=== PATIENT | female | born 1995 | race Caucasian/White ===

== ENCOUNTER 2018-08-29 05:19 | Observation (INO) ==
--- NOTE | 2018-08-29 07:23 | Labor Progress Brief Note ---
Date of Service August 29, 2018 Subjective Patient presented with c/o Ctx Q3-5min and LOF. She has no VB, and +FM. Has been observed for two hours. No LOF has occurred here. Contractions faded. Assessment & Plan (1) Previous delivery, antepartum: Not currently laboring. Will D/C to home for f/u in office today as scheduled. Physical Exam Vital Signs (Past 24 Hours): Last Vital Signs Temp 36.9 C 08/29/18 05:29 Pulse 88 08/29/18 06:58 Resp 18 08/29/18 05:29 BP 117/78 08/29/18 06:58 Physical Exam: [place] Q6, FHT Cat 1 Cvx unchanged from last office exam at /-2 No ROM
--- NOTE | 2018-08-31 08:47 | Discharge Summary ---
Date of Service August 31, 2018 Admission HPI Per Admitting Provider Patient was seen on L&D due to contractions. She had a history of prior . She was examined, monitored for several hours and then re-examined. Though uterine contractions were occurring, they were not creating clinically obvious discomfort and not creating cervical change. For these reasons the patient was discharged to home for continuation of care, as she was not in labor.
== END 2018-08-29 07:34 | disposition home or self-care (01) ==
LOC: 4S1 05:19 → OPB 05:19 → 4S1 05:21

== ENCOUNTER 2018-08-30 02:03 | Inpatient (IN) ==
[2018-08-30] MEDS ORDERED: OXYTOCIN 30 UNITS/500 ML BAG IV PRN ×3 (02:50→13:07)
[2018-08-30] MEDS ORDERED: LACTATED RINGER'S 1,000 ML IV SCH (03:00)
[2018-08-30 03:19] LABS: Hematocrit (blood only) 34.6 % (37-47); Hemoglobin 10.9 g/dL (12.0-16.0); Mean Corpuscular Volume 77.6 fL (80-100); Platelet Count 224 K/uL (130-400); RDW Coefficient of Variation 14.4 % (11.5-14.5); RDW Standard Deviation 40.8 fL (36.4-46.3); Red Blood Count 4.46 M/uL (4.2-5.4); White Blood Count 15.99 K/uL (4.8-10.8)
[2018-08-30 03:27] LABS: Mean Corpuscular Hgb Conc 31.5 g/dL (32-36)
[2018-08-30] MEDS ORDERED: BUTORPHANOL TARTRATE 1 MG/ML VIAL IV PRN (03:31)
[2018-08-30] MEDS: BUTORPHANOL TARTRATE 1 MG/ML VIAL IV PRN ×2 (06:07→07:34)
--- NOTE | 2018-08-30 06:32 | History & Physical Report ---
Date of Service August 30, 2018 Assessment & Plan (1) Previous delivery, antepartum: heart rate tracing is category 1. The patient desires . consent form signed again. Manage expectantly. Patient declines epidural, but requesting IV pain medication. Stadol 1 mg IV every hour as needed. Manage expectantly. History of Present Illness Chief Complaint: Contractions Primary Care Provider: Xavier Johnson With complaint of contractions. Patient has been having prodromal contractions for the last 24 hours. Patient states that they have increased in intensity. Patient denies rupture of membranes. The patient is a candidate. Her first was section. Patient has opted for a VBACThe patient is a 22-year-old 2 para 1, EDC of 28 August, at 40+ weeks gestational age, who presents today. The patient has had a benign course. Her blood type is O+, antibody negative, rubella immune, hepatitis B negative, she had a negative cell free DNA screen, she had a normal 1 hour Glucola x2, and a negative third trimester beta strep culture Allergies Allergy/AdvReac Type Severity Reaction Status Date / Time cephalexin [From Keflex] Allergy Severe THROAT AND Verified 08/30/18 02:21 FACIAL SWELLING Penicillins Allergy Severe THROAT AND Verified 08/30/18 02:21 FACIAL SWELLING amoxicillin Allergy Swelling Verified 08/30/18 02:21 of Lip/Tongue/Throat azithromycin Allergy Rash Verified 08/30/18 02:21 Home Medications Home Medications Medication Instructions Recorded Confirmed Type pediatric ocirrtyr-qbnc-eoh 1 tab PO DAILY 08/16/18 08/30/18 History [Flintstones Complete (iron)] Patient History Medical History Migraine no meds Surgical History H/O wisdom tooth extraction in 10th grade History of section 09/08/2016 for [facility] Family History Grandmother (Maternal) Family history of diabetes mellitus Grandfather (Paternal) Hypertension Social History Preferred Language: Bulgarian Communication Ability: Effective 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 Beliefs That Will Affect Care: None marital status: Single Current Living Situation: Parent Current Living Situation Comment: PARENTS AND DAUGHTER-2YR OLD Other Information That Helps Us Care for You: No Feels Safe at Home: Yes Safety Concerns: Feels Safe At This Time Smoking Status: Never smoker Hx Alcohol Use: No Hx Substance Use: No Physical Exam Vital Signs (Past 24 Hours): Last Vital Signs Temp 36.6 C 08/30/18 02:15 Pulse 92 H 08/30/18 06:05 Resp 18 08/30/18 06:05 BP 116/69 08/30/18 06:05 Constitutional: WD/WN, vitals as above Respiratory: Auscultation: lungs clear to auscultation bilaterally Cardiovascular: RRR, no murmur, no edema Extremities: no calf tenderness Gastrointestinal (Abdomen): Gravid, positive heart tones, positive palpable contractions, estimated weight of 7 pounds Genitourinary: Manual OB Exam: + cervical dilation 3 cm, + cervical effacement 80% and + station -2 OB Exam Monitor Tracing: + external FHT monitor used and + category I
[2018-08-30] MEDS ORDERED: LACTATED RINGER'S 1,000 ML IV PRN ×2 (07:34→09:40)
--- NOTE | 2018-08-30 07:41 | Obstetrical Progress Note ---
Date of Service August 30, 2018 Assessment & Plan (1) Supervision of normal intrauterine in multigravida in third t rimester: - ctx's have spaced out with Stadol - AROM, will start pitocin augmentation - explained to patient Physical Exam Vital Signs (Past 24 Hours): Last Vital Signs Temp 36.9 C 08/30/18 07:21 Pulse 88 08/30/18 07:21 Resp 20 08/30/18 07:21 BP 107/61 08/30/18 07:21 Genitourinary: Manual OB Exam: + cervical dilation 4 cm, + cervical effacement 100%, + station -1 and + amniotic fluid (AROM, clear) OB Exam Monitor Tracing: + category II
[2018-08-30] MEDS: LACTATED RINGER'S 1,000 ML IV PRN ×2 (09:10→09:24)
[2018-08-30] MEDS ORDERED: fentaNYL citrate 100 MCG/2 ML VIAL ONE (09:13)
[2018-08-30] MEDS ORDERED: ePHEDrine sulfate 50 MG/ML AMP ONE (09:13)
[2018-08-30] MEDS ORDERED: BUPIVACAINE 0.25% 30 ML VIAL ONE (09:13)
[2018-08-30] MEDS ORDERED: fentaNYL 2MCG/ML ROPIV 1.25MG/ML 100 ML BAG EPI ONE (09:14)
[2018-08-30] MEDS ORDERED: ONDANSETRON INJ 2 MG/ML 2 ML VIAL IV PRN (09:40)
[2018-08-30] MEDS ORDERED: NALBUPHINE HCL INJ 10 MG/ML AMP IV PRN (09:40)
[2018-08-30] MEDS ORDERED: ePHEDrine sulfate 50 MG/ML AMP IV PRN (09:40)
[2018-08-30] MEDS ORDERED: NALOXONE HCL 0.4 MG/1 ML VIAL/CARP IV PRN (09:40)
[2018-08-30] MEDS ORDERED: DiphenhydrAMINE HCL 50 MG/ML VIAL IV PRN (09:40)
[2018-08-30] MEDS ORDERED: PROMETHAZINE HCL 6.25 MG in SODIUM CHLORIDE 0.9% 50 ML IV PRN (09:40)
[2018-08-30] MEDS ORDERED: NALOXONE HCL 1 MG in SODIUM CHLORIDE 0.9% 1000ML 1,000 ML IV PRN (09:40)
[2018-08-30] MEDS ORDERED: fentaNYL 2MCG/ML ROPIV 1.25MG/ML 100 ML BAG EPI PRN (09:40)
--- NOTE | 2018-08-30 09:40 | Anesthesiology Consultation ---
Date of Service August 30, 2018 @ 40.2 TOLAC Assessment & Plan (1) Encounter for pre-operative examination: Chart Review Chart Review: Patient NOT seen in Pre Admission Testing and Acceptable Risk for Labor Epidural Consults Requested none ASA ASA2 Proposed Anesthesia Anesthesia Type: Labor Epidural Risk / Benefits Reviewed With: PT / POA / Parent / Guardian, Accepts Plan and Informed Consent Obtained History Height/Weight Height: 5 ft 5 in Weight: 66.678 kg Allergies Allergy/AdvReac Type Severity Reaction Status Date / Time cephalexin [From Keflex] Allergy Severe THROAT AND Verified 08/30/18 02:21 FACIAL SWELLING Penicillins Allergy Severe THROAT AND Verified 08/30/18 02:21 FACIAL SWELLING amoxicillin Allergy Swelling Verified 08/30/18 02:21 of Lip/Tongue/Throat azithromycin Allergy Rash Verified 08/30/18 02:21 Medications Home Medications Medication Instructions Recorded Confirmed Last Taken pediatric dckbetlg-rlgl-jhm 1 tab PO DAILY 08/16/18 08/30/18 08/29/18 08:00 [Flmodestatontran Complete (iron)] Active Medications Generic Name Dose Route Start Last Admin Trade Name Freq PRN Reason Stop Dose Admin Butorphanol Tartrate 1 mg 08/30/18 05:53 08/30/18 07:34 Stadol IV 09/29/18 03:30 1 mg Q1HWA PRN Administration Pain Lactated Ringer's 1,000 mls @ 999 mls/hr 08/30/18 02:50 08/30/18 09:24 Lr IV 09/29/18 02:49 999 mls/hr .Q1H1M PRN Administration (Pre-Anesthesia) Lactated Ringer's 1,000 mls @ 125 mls/hr 08/30/18 03:00 08/30/18 09:10 Lr IV 09/01/18 02:59 0 mls/hr .Q8H OMERO Infusion Oxytocin 30 units in 500 mls @ 3 mls/hr 08/30/18 07:34 08/30/18 08:25 Pitocin IV 09/01/18 07:33 0.18 units/hr .Q24H PRN 3 mls/hr Labor Induction/Augmentation Titration Protocol 0.18 UNITS/HR Past Medical History Medical History Migraine no meds Past Family History Family History Grandmother (Maternal) Family history of diabetes mellitus Grandfather (Paternal) Hypertension Past Surgical History Surgical History H/O wisdom tooth extraction in 10th grade History of section 09/08/2016 for [facility] Social History Smoking Status: Never smoker Hx Alcohol Use: No Hx Substance Use: No substance use type: does not use Physical Exam Vital Signs Last Vital Signs Temp 36.9 C 08/30/18 08:43 Pulse 78 08/30/18 09:36 Resp 20 08/30/18 08:43 BP 110/58 L 08/30/18 09:36 Pulse Ox 98 08/30/18 09:33 Constitutional gravid abdomen ENMT Mouth: no TMJ abnormality Thyromental Distance: > or= 3.5 Finger Breadths Mallampati Class: II Neck normal visual inspection Respiratory normal respiratory effort Cardiovascular Rate/Rhythm: regular rate and regular rhythm Neurologic moves all extremities Psychiatric Orientation: alert Testing Laboratory Results 08/30/18 02:59 Blood Type O Positive 08/30/18 02:59 Antibody Screen POSITIVE A 08/30/18 02:59
--- NOTE | 2018-08-30 12:00 | Procedure Note ---
Vaginal Delivery Summary Date of Service August 30, 2018 Vaginal Delivery Summary Predelivery diagnoses: 22yo @ 40 2, history of for breech Postdelivery diagnoses: same Procedure: Vaginal after Surgeon: Dr Salazar EBL: 300ml Complications: none Findings: Viable male , Apgars 9/10. Weight pending, please see nursery records. Description of delivery: The patient progressed to complete with epidural anesthesia. She then began to push. She spontaneously vaginally delivered a viable male from the cephalic presentation. The head delivered in the JOSE position, followed by anterior and posterior shoulders and body. The baby was placed on mother's abdomen, the cord was doubly clamped/cut, and the baby was handed to waiting pediatrics team. During the handoff, a spontaneous cry was heard. The placenta was delivered spontaneously intact with a 3 vessel cord. The uterus/vagina were swept of clots and debris. The scar internally felt intact. The cervix/vagina/perineum were inspected and no lacerations were noted. Excellent hemostasis was observed. The sponge/instrument counts were correct x2. Mother and baby recovered in stable and good condition in the room.
[2018-08-30] MEDS ORDERED: ACETAMINOPHEN 325 MG TAB PO PRN (13:07)
[2018-08-30] MEDS ORDERED: SUPERCREAM 0.870% 15 GM JAR EXT PRN (13:07)
[2018-08-30] MEDS ORDERED: OXYCODONE/ACETAMINOPHEN 5mg/325mg TAB PO PRN (13:07)
[2018-08-30] MEDS ORDERED: DIPHTHERIA/TETANUS/PERTUSSIS 0.5 ML SYR/VIAL IM ONE (13:07)
[2018-08-30] MEDS ORDERED: HYDROCORTISONE ACETATE 25 MG SUPP PR PRN (13:07)
[2018-08-30] MEDS ORDERED: BENZOCAINE 20% AER SPR 82.5 GM CAN EXT PRN (13:07)
--- NOTE | 2018-08-30 15:11 | Anesthesia Procedure Note ---
Date of Service August 30, 2018 Anesthesia Post Epidural Note Vital Signs Vital Signs: Temp Pulse Resp BP Pulse Ox 37.5 C 106 H 18 121/77 97 08/30/18 14:10 08/30/18 14:10 08/30/18 14:10 08/30/18 14:10 08/30/18 14:10 Pain Intensity Abdomen: Pain Intensity: 0 Notes Mental Status: alert / awake / arousable Nausea / Vomiting: adequately controlled Pain: adequately controlled Airway Patency, RR, SpO2: stable & adequate BP & HR: stable & adequate Hydration State: stable & adequate Neuraxial Anesthesia: was administered and sensory block is resolving Anesthetic Complications: no major complications apparent and Pt Satisfied with anesthetic care Epidural: Removed without complications and With tip intact
[2018-08-30] MEDS: IBUPROFEN 600 MG TAB PO PRN (16:35)
[2018-08-30 17:31] VITALS: O2SAT 100
[2018-08-30] MEDS: DOCUSATE SODIUM 100 MG CAP PO SCH (20:36)
[2018-08-31] MEDS: IBUPROFEN 600 MG TAB PO PRN ×2 (00:07→08:00)
--- NOTE | 2018-08-31 06:48 | Obstetrical Progress Note ---
Date of Service <Song Jannette Mayo, - Last Filed: 08/31/18 06:48> August 31, 2018 Assessment & Plan <Song CRoel Mayo - Last Filed: 08/31/18 06:48> (1) (vaginal after ): -vital signs reviewed and WNL -last Hgb 10.9 -Blood type: O+, GBS-, Rubella Immune -pt doing well clinically -encourage ambulation, monitor and control pain with motrin tylenol, cont regular diet, monitor lochia Subjective <Songhernandez Mayo DO - Last Filed: 08/31/18 06:48> 22 y/o PPD1 found in bed this morning in NAD. Reports no acute overnight events. Pt states that she has no pain other than appropriate soreness. Tolerating PO intake without N/V. Able to ambulate without issue. She is bottle feeding without issue. No issues with voiding, no BM yet. No other acute concerns or complaints. Review of Systems All systems reviewed & are unremarkable except as noted in HPI & below Physical Exam <Song C. Mayo, DO - Last Filed: 08/31/18 06:48> Vital Signs (Past 24 Hours) Last Vital Signs Temp 36.5 C 08/31/18 04:30 Pulse 88 08/31/18 04:30 Resp 16 08/31/18 04:30 BP 101/61 08/31/18 04:30 Pulse Ox 100 08/30/18 16:35 Constitutional WD/WN, vitals as above Eyes PERRL, conjunctivae normal, anicteric sclerae ENMT external ear and nose normal, oropharynx normal Respiratory normal respiratory effort, lungs clear to auscultation Cardiovascular RRR, no murmur, no edema Gastrointestinal (Abdomen) mild abd tenderness Skin no rashes, warm and dry Psychiatric A+Ox3, euthymic affect Lymphatic no LE swelling, no calf tenderness Results & Data <Song C. Mayo, DO - Last Filed: 08/31/18 06:48> Laboratory Results Laboratory Results - last 24 hr 08/30/18 02:59 Blood Type O Positive Antibody Screen POSITIVE A Antibody Identification Anti-E Antigen Identification E Antigen - NEGATIVE Crossmatch See Detail Medications Administered Current Inpatient Medications Acetaminophen (Tylenol) 650 mg PO Q6H PRN PRN Reason: Pain/WILSON/Fever Stop: 09/29/18 13:06 Last Admin: 08/30/18 18:53 Dose: 650 mg Documented by: Benzocaine (Dermoplast Pain Relieving Lantry) 1 appln EXT PRN PRN PRN Reason: Perineal Discomfort Stop: 09/29/18 13:06 Bisacodyl (Dulcolax) 5 mg PO 2000 [facility] Stop: 08/31/18 20:01 Bisacodyl (Dulcolax) 10 mg AR DAILY PRN PRN Reason: No BM on 2nd post- day Stop: 10/01/18 05:59 Cocaine HCl (Supercream 0.870%) 1 gm EXT BID PRN PRN Reason: Hemorrhoidal Inflammation Stop: 09/13/18 13:06 Docusate Sodium (Colace) 100 mg PO BID [facility] Stop: 09/29/18 20:59 Last Admin: 08/30/18 20:36 Dose: 100 mg Documented by: Hydrocortisone (Anusol Hc) 25 mg AR BID PRN PRN Reason: Hemorrhoidal Inflammation Stop: 09/29/18 13:06 Oxytocin (Pitocin) 30 units in 500 mls @ 333.333 mls/hr IV .Q1H30M PRN; Protocol PRN Reason: BLEEDING CONTROL Stop: 09/29/18 13:06 Ibuprofen (Motrin) 600 mg PO Q4H PRN PRN Reason: Pain/WILSON/Cramping/Fever Stop: 09/29/18 13:06 Last Admin: 08/31/18 00:07 Dose: 600 mg Documented by: Multivitamins/Folic Acid/Vitamin C (Flintstones Complete Chew Tab) 1 tab PO DAILY [facility] Stop: 09/30/18 08:59 Oxycodone/Acetaminophen (Percocet 5mg/325mg) 1 tab PO Q4H PRN PRN Reason: Pain not relieved by... Stop: 09/13/18 13:06 <Ailyn Salazar, - Last Filed: 08/31/18 08:38> Co-Signing Physician Notes I have seen/examined patient. I have read above note performed by resident and I agree with above. Any changes/additions are as follows: PPD1 doing well. Patient would like to go home today, reviewed DC instructions. Ailyn Salazar DO [facility] [place] OBGYN Resident Activity Tracking <Song Mayo, - Last Filed: 08/31/18 06:48> Resident Involvement: Resident Care Provided Care Provided: OB Delivery
[2018-08-31 07:04] LABS: Hematocrit (blood only) 29.2 % (37-47); Hemoglobin 9.2 g/dL (12.0-16.0)
[2018-08-31] MEDS ORDERED: FLINTSTONES COMPLETE CHEWABLE TAB PO SCH (09:00)
[2018-08-31] MEDS ORDERED: PRENATAL VITAMIN 1 TAB PO SCH (09:00)
[2018-08-31] MEDS: DOCUSATE SODIUM 100 MG CAP PO SCH (10:06)
[2018-08-31 14:34] VITALS: BP 108/69; PULSE 77; TEMP 97.9
[2018-08-31] MEDS ORDERED: BISACODYL 5 MG TABEC PO SCH (20:00)
[2018-09-01] MEDS ORDERED: BISACODYL 10 MG SUPP PR PRN (06:00)
== END 2018-08-31 15:32 | disposition home or self-care (01) | DRG 807 ==
LOC: OPB 02:03 → 4S1 02:06 → 4S2 14:14

== ENCOUNTER 2023-04-11 10:31 | Inpatient (IN) ==
--- NOTE | 2023-04-11 10:58 | History & Physical Report ---
Date of Service April 11, 2023 Assessment & Plan (1) Patient desires vaginal after section (): Plan Will admit patient to L&D for IOL and attempt at . Patient is comfortable. VSS. FHT category 1. Amniotomy done. Pit as needed. Epidural prn Admission and Anticipated Discharge Date Admission Date: April 11, 2023 History of Present Illness Chief Complaint: IOL; attempt Primary Care Provider: Nereyda Tobias DO Domitila is a 27 y/o female currently at IUP 40 0/7 WGA with an GABBIE 04/11/2023 as determined by certain LMP who is here for IOL due to post-dates. Patient has history of successful and wishes to attempt again. She is s/p ECV. (+) contractions(irregular/ BHC) (+) movement (-) fluid loss (-) bloody show External FHT and external uterine monitors used * Category 1 tracing * Moderate FHT variability. Had regular appointments since the first trimester. OB Labs: Blood Type O Positive 03/24/23 Antibody Screen POSITIVE A 03/24/23 Hemoglobin 9.5 g/dl (12.0-16.0) L 03/24/23 Hematocrit 29.9 % (37.0-47.0) L 03/24/23 Mean Corpuscular Volume 79.9 fL (80.0-100.0) L 03/24/23 Platelet Count 219 K/uL (130-400) 03/24/23 Rubella IgG Antibody Equivocal (Immune) L 09/30/22 Rapid Plasma Reagin Nonreactive (Nonreactive) 09/30/22 Hepatitis B Surface Antigen Neg (Neg) 10/27/20 Hepatitis B Surface Antigen. NON-REACTIVE (NON-REACTIVE) 09/30/22 Hepatitis C Antibody (EIA) NON-REACTIVE (NON-REACTIVE) 09/30/22 HIV (1&2) Ab and P24 Ag, 4th Gener Neg (Neg) 10/27/20 HIV (1&2) Ag and Ab Confirmation NON-REACTIVE (NON-REACTIVE) 09/30/22 Glucose 1 Hour 50 gm Load 85 mg/dl (70-130) 01/27/23 Maternal Serum Alpha Fetoprotein 86.9 ng/mL 12/24/20 OB Optional Labs: Chlamydia trachomatis RNA Not Detected (NotDetected) 09/30/22 Neisseria gonorrhoeae RNA Not Detected (NotDetected) 09/30/22 Thyroid Stimulating Hormone (TSH) 1.310 uIu/ml (0.300-4.500) 02/01/21 Alpha Fetoprotein Triple Screen SEE NOTE 12/24/20 Allergies Allergy/AdvReac Type Severity Reaction Status Date / Time amoxicillin Allergy Severe Swelling Verified 04/10/23 14:52 of Lip/Tongue/Throat cephalexin [From Keflex] Allergy Severe THROAT AND Verified 04/10/23 14:52 FACIAL SWELLING Penicillins Allergy Severe THROAT AND Verified 04/10/23 14:52 FACIAL SWELLING azithromycin Allergy Intermediate Rash Verified 04/10/23 14:52 Home Medications Medication Instructions Recorded Confirmed Type 1 tab PO QAM 04/05/23 04/10/23 History Patient History Medical History (Updated 04/11/23 @ 11:08 by Gayla Farris MD) Eczema H/O trichomoniasis History of migraine History of 08/30/18 at [facility] Surgical History (Updated 04/11/23 @ 11:09 by Gayla Farris MD) H/O wisdom tooth extraction in 10th grade History of section 09/08/2016 for [facility] History of D&C x 2 Family History Grandmother (Maternal) Family history of diabetes mellitus Grandfather (Paternal) Hypertension Mother Ovarian cyst Endometriosis Awareness under anesthesia Grandmother (Paternal) Endometriosis Brother Awareness under anesthesia Denies family history of Ovarian cancer Breast cancer Colorectal cancer Social History Smoking Status: Never smoker Second Hand Exposure: No; Do You Dip or Chew Tobacco: No; Hx Alcohol Use: No Hx Substance Use: No Preferred Language: Macedonian Communication Ability: Effective Vitamin Manager Required: No Beliefs That Will Affect Care: None marital status: Single marital status details: Maureen Emanuel-mother [phone] Current Living Situation: Significant Other Current Living Situation Comment: Jonn BOOGIE, 2 children current occupational status: employed current occupation: [employer] service Feels Safe at Home: Yes Assistive Devices: Contacts and Glasses OB History * (09/08/16) F born at 40 wga and weighed 6lb 7oz; (breech) * (08/30/18) M born at 40 wga and weighed 7lb 2oz; * (12/31/20) Demise - Induced vaginal delivery at 17 wga BUSINESS OFFICE DIRECTOR History Menarche was at 14 y/o LMP: 01/29/22 * Regular (monthly) * Duration: 5 days * Flow: Normal * Dysmenorrhea: N * IMB: N Contraception use: no History of STDs: N Last Pap Smear: 10/29/2020 (negative) Review of Systems no fever, no chills and no sweats Denies changes in vision. Denies shortness of breath or respiratory difficulty. no chest pain and no palpitations no dysuria no headache(s) Physical Exam Physical Exam: General: Alert, oriented x3. Afebrile. No acute distress. Eyes: Pupils equal and reactive to light bilaterally. Extraocular movement intact bilaterally. Cardiac: Regular rate and rhythm, no murmurs/rubs/gallops. Respiratory: Clear to auscultation bilaterally a/p, no wheezes/rales/rhonchi. No increased work of breathing. Symmetrical chest rise. No respiratory distress. Abdomen: Gravid; FHT with baseline of 130-135 bpm; Position: Cephalic Pelvic: Dilation 2 cm; Effacement 70; Station -[address] Hillman Lower Extremities: No lower extremity edema or swelling. No deep calf pain. Monet's negative bilaterally Supervising Physician Co-Signing Physician Notes Patient evaluated and agree with the above findings and plan. Artificial rupture of membranes with the hope this will induce spontaneous labor. Will augment with oxytocin if needed. Resident Activity Tracking Resident Involvement: Resident Care Provided Care Provided: OB Delivery
[2023-04-11] MEDS: LACTATED RINGER'S 1,000 ML IV PRN ×3 (11:32→19:54)
[2023-04-11] MEDS ORDERED: OXYTOCIN 30 UNITS/500 ML BAG IV PRN ×4 (11:34→23:58)
[2023-04-11] MEDS ORDERED: LIDOCAINE 1% LOCAL 20 ML VIAL INFIL PRN ×2 (11:34→11:37)
[2023-04-11] MEDS ORDERED: SODIUM CHLORIDE 0.9% 250 ML IV PRN (11:37)
[2023-04-11] MEDS ORDERED: LACTATED RINGER'S 1,000 ML IV PRN (11:37)
[2023-04-11 12:07] LABS: Hematocrit (blood only) 32.3 % (37.0-47.0); Hemoglobin 10.1 g/dl (12.0-16.0); Mean Corpuscular Hemoglobin 24.7 pg (25.0-34.0); Mean Corpuscular Hgb Conc 31.3 g/dL (32.0-36.0); Mean Platelet Volume 10.9 fL (9.4-12.4); Platelet Count 229 K/uL (130-400); RDW Coefficient of Variation 14.7 % (11.5-14.5); RDW Standard Deviation 42.3 fL (36.4-46.3); Red Blood Count 4.09 M/uL (4.20-5.40); White Blood Count 9.92 K/ul (4.8-10.8)
[2023-04-11] MEDS ORDERED: fentaNYL citrate PF 100 MCG/2 ML VIAL ONE (16:18)
[2023-04-11] MEDS ORDERED: LIDOCAINE 2%/EPINEPHRINE 1:200,000 20 ML PF ONE (16:19)
[2023-04-11] MEDS ORDERED: ePHEDrine sulfate 50 MG/ML AMP ONE (16:19)
[2023-04-11] MEDS ORDERED: fentANYL 2 MCG/ML BUPIVacaine 0.125%-NSS 100ML BAG ONE (16:19)
[2023-04-11] MEDS ORDERED: BUPIVACAINE 0.25% PF 30 ML VIAL ONE (16:19)
[2023-04-11] MEDS ORDERED: SODIUM CHLORIDE 0.9% PF INJ 10 ML VIAL ONE (16:19)
--- NOTE | 2023-04-11 16:38 | Anesthesiology Consultation ---
Date of Service April 11, 2023 Assessment & Plan (1) Encounter for pre-operative examination: Chart Review Chart Review: Acceptable Risk for Labor Epidural History Height/Weight Height: 5 ft 5 in Weight: 68.585 kg Allergies Allergy/AdvReac Type Severity Reaction Status Date / Time amoxicillin Allergy Severe Swelling Verified 04/10/23 14:52 of Lip/Tongue/Throat cephalexin [From Keflex] Allergy Severe THROAT AND Verified 04/10/23 14:52 FACIAL SWELLING Penicillins Allergy Severe THROAT AND Verified 04/10/23 14:52 FACIAL SWELLING azithromycin Allergy Intermediate Rash Verified 04/10/23 14:52 Medications Home Medications Medication Instructions Recorded Confirmed Last Taken 1 tab PO QAM 04/05/23 04/10/23 Unknown Active Medications Generic Name Dose Route Start Last Admin Trade Name Freq PRN Reason Stop Dose Admin Lactated Ringer's 1,000 mls @ 125 mls/hr 04/11/23 11:34 04/11/23 16:35 Lr IV 04/13/23 11:33 999 mls/hr .Q8H PRN Administration L&D Protocol Protocol Past Medical History Medical History Eczema H/O trichomoniasis History of migraine History of 08/30/18 at [facility] Past Family History Family History Grandmother (Maternal) Family history of diabetes mellitus Grandfather (Paternal) Hypertension Mother Ovarian cyst Endometriosis Awareness under anesthesia Grandmother (Paternal) Endometriosis Brother Awareness under anesthesia Denies family history of Ovarian cancer Breast cancer Colorectal cancer Past Surgical History Surgical History H/O wisdom tooth extraction in 10th grade History of section 09/08/2016 for [facility] History of D&C x 2 Social History Smoking Status: Never smoker Do You Dip or Chew Tobacco: No Hx Alcohol Use: No Hx Substance Use: No substance use type: does not use Physical Exam Vital Signs Last Vital Signs Temp 36.7 C 04/11/23 13:34 Pulse 76 04/11/23 16:35 Resp 19 04/11/23 13:34 BP 111/71 04/11/23 11:39 Pulse Ox 98 04/11/23 16:35 Testing Laboratory Results 04/11/23 11:49 Blood Type O Positive 04/11/23 11:49 Antibody Screen POSITIVE A 04/11/23 11:49
[2023-04-11] MEDS ORDERED: LIDOCAINE 2%/EPINEPHRINE 1:200,000 20 ML PF EPI STA (17:14)
[2023-04-11] MEDS ORDERED: BUPIVACAINE 0.25% PF 30 ML VIAL EPI STA (17:14)
[2023-04-11] MEDS ORDERED: LIDOCAINE 2% MPF LOCAL 5 ML VIAL EPI PRN (17:14)
[2023-04-11] MEDS ORDERED: fentANYL 2 MCG/ML BUPIVacaine 0.125%-NSS 100ML BAG EPI PRN (17:14)
[2023-04-11] MEDS ORDERED: NALOXONE HCL 0.4 MG/1 ML VIAL/CARP IV PRN (17:14)
[2023-04-11] MEDS ORDERED: SODIUM CHLORIDE 0.9% PF INJ 10 ML VIAL EPI PRN (17:14)
[2023-04-11] MEDS ORDERED: NALOXONE HCL 1 MG in SODIUM CHLORIDE 0.9% 1,000 ML IV PRN (17:14)
[2023-04-11] MEDS ORDERED: SODIUM CHLORIDE 0.9% PF INJ 10 ML VIAL EPI STA (17:14)
[2023-04-11] MEDS ORDERED: fentaNYL citrate PF 100 MCG/2 ML VIAL EPI STA (17:14)
[2023-04-11] MEDS ORDERED: ROPIVACAINE 0.5% PF 5 MG/ML 20 ML VIAL EPI PRN (17:14)
[2023-04-11] MEDS ORDERED: ONDANSETRON INJ 2 MG/ML 2 ML VIAL IV PRN (17:14)
[2023-04-11] MEDS ORDERED: ePHEDrine sulfate 50 MG/ML AMP IV PRN (17:14)
[2023-04-11] MEDS ORDERED: fentaNYL citrate PF 100 MCG/2 ML VIAL EPI PRN (17:14)
[2023-04-11] MEDS ORDERED: BUPIVACAINE 0.25% PF 30 ML VIAL EPI PRN (17:14)
--- NOTE | 2023-04-11 18:42 | Labor Progress Brief Note ---
Date of Service April 11, 2023 Subjective Reason For Note: Routine Evaluation Assessment & Plan (1) Patient desires vaginal after section (): Plan Cervix basically unchanged compared to prior exam. We will start oxytocin. Category 1 tracing noted. Patient comfortable with epidural Admission and Anticipated Discharge Date Admission Date: April 11, 2023 Physical Exam Genitourinary: Manual OB Exam: + cervical dilation 4 cm, + cervical effacement 70%, + station -2 and + amniotic fluid clear OB Exam Monitor Tracing: + external FHT monitor used, + external uterine monitor used, + category I and + normal FHT variability Results & Data Vital Signs (Past 12 Hours) Vital Signs Temp Pulse Resp BP Pulse Ox 04/11/23 11:39 36.8 C 69 22 111/71 04/11/23 18:35 100 04/11/23 18:35 90 04/11/23 18:30 100 04/11/23 18:30 90 04/11/23 18:28 71 04/11/23 18:28 94/54 L 04/11/23 18:25 100 04/11/23 18:25 77 04/11/23 18:20 100 04/11/23 18:20 75 04/11/23 18:16 88 L 04/11/23 18:16 90 04/11/23 18:15 100 04/11/23 18:15 114 H 04/11/23 18:12 90 04/11/23 18:12 92/54 L 04/11/23 18:10 100 04/11/23 18:10 108 H 04/11/23 18:05 100 04/11/23 18:05 72 04/11/23 18:00 100 04/11/23 18:00 101 H 04/11/23 17:57 94 H 04/11/23 17:57 92/55 L 04/11/23 17:55 99 04/11/23 17:55 89 04/11/23 17:54 76 04/11/23 17:54 97/59 L 04/11/23 17:50 100 04/11/23 17:50 92 H 04/11/23 17:47 81 04/11/23 17:47 90/51 L 04/11/23 17:45 91 04/11/23 17:45 99 H 04/11/23 17:43 86 04/11/23 17:43 91/54 L 04/11/23 17:40 100 04/11/23 17:40 88 04/11/23 17:38 96 H 04/11/23 17:38 100/55 L 04/11/23 17:35 91 04/11/23 17:35 97 H 04/11/23 17:35 100 04/11/23 17:35 88 04/11/23 17:32 90 04/11/23 17:32 96/52 L 04/11/23 17:30 100 04/11/23 17:30 88 04/11/23 17:27 89 04/11/23 17:27 97/55 L 04/11/23 17:25 100 04/11/23 17:25 87 04/11/23 17:23 77 04/11/23 17:23 94/52 L 04/11/23 17:20 100 04/11/23 17:20 100 H 04/11/23 17:16 101 H 04/11/23 17:16 99/55 L 04/11/23 17:15 100 04/11/23 17:15 116 H 04/11/23 17:14 100 H 04/11/23 17:14 101/56 L 04/11/23 17:12 105 H 04/11/23 17:12 93/50 L 04/11/23 17:10 18 04/11/23 17:10 36.8 C 18 04/11/23 17:10 99 04/11/23 17:10 117 H 04/11/23 17:10 90/54 L 04/11/23 17:08 106 H 04/11/23 17:08 82/46 L 04/11/23 17:06 103 H 04/11/23 17:06 86/53 L 04/11/23 17:06 91 H 04/11/23 17:06 83/51 L 04/11/23 17:05 100 04/11/23 17:05 91 H 04/11/23 17:05 104/56 L 04/11/23 17:02 76 04/11/23 17:02 104/53 L 04/11/23 17:00 99 04/11/23 17:00 88 04/11/23 17:00 113/56 L 04/11/23 16:58 87 04/11/23 16:58 99/55 L 04/11/23 16:56 87 04/11/23 16:56 111/59 L 04/11/23 16:55 100 04/11/23 16:55 92 H 04/11/23 16:50 100 04/11/23 16:50 91 H 04/11/23 16:45 100 04/11/23 16:45 89 04/11/23 16:44 94 04/11/23 16:44 80 04/11/23 16:40 100 04/11/23 16:40 93 H 04/11/23 16:35 98 04/11/23 16:35 76 04/11/23 16:34 88 L 04/11/23 16:34 86 04/11/23 13:34 19 04/11/23 13:34 36.7 C 19 04/11/23 11:15 69 111/71 Coding Level of Care Code None Diagnoses Patient desires vaginal after section () O34.219
--- NOTE | 2023-04-11 21:49 | Labor Progress Brief Note ---
Date of Service April 11, 2023 Subjective Reason For Note: Change In Status Having recurrent decelerations Assessment & Plan (1) Patient desires vaginal after section (): Plan Cervical change noted compared to my prior exam at around 4 PM. Recurrent decelerations noted and Pitocin discontinued. Tracing currently category 1. FSE and IUPC placed. Will evaluate in 30 minutes to determine need to restart Pitocin. Admission and Anticipated Discharge Date Admission Date: April 11, 2023 Physical Exam Genitourinary: normal external appearance Manual OB Exam: + cervical dilation 6 cm, + cervical effacement 80%, + station -2 and + amniotic fluid clear OB Exam Monitor Tracing: + external FHT monitor used, + external uterine monitor used, + category II, + normal FHT variability, + early decelerations present, + late decelerations present and + variable decelerations Patient having recurrent decelerations with a mix of mostly variable and late decelerations. Pitocin stopped and an IUPC and FSE placed. Bladder drained. Tracing returned to category 1 Results & Data Vital Signs (Past 12 Hours) Vital Signs Temp Pulse Resp BP Pulse Ox 04/11/23 19:10 36.5 C 18 04/11/23 11:39 36.8 C 69 22 111/71 04/11/23 21:40 98 04/11/23 21:40 69 04/11/23 21:35 97 04/11/23 21:35 62 04/11/23 21:30 97 04/11/23 21:29 63 04/11/23 21:30 63 04/11/23 21:29 109/53 L 04/11/23 21:25 97 04/11/23 21:25 61 04/11/23 21:00 18 04/11/23 21:00 36.6 C 18 04/11/23 21:20 98 04/11/23 21:20 58 L 04/11/23 21:17 64 04/11/23 21:17 88/57 L 04/11/23 21:15 97 04/11/23 21:15 72 04/11/23 21:10 97 04/11/23 21:10 68 04/11/23 21:05 97 04/11/23 21:05 68 04/11/23 21:00 97 04/11/23 21:00 57 L 04/11/23 20:58 57 L 04/11/23 20:58 89/51 L 04/11/23 20:55 97 04/11/23 20:55 61 04/11/23 20:50 97 04/11/23 20:50 64 04/11/23 20:45 97 04/11/23 20:44 64 04/11/23 20:45 65 04/11/23 20:44 102/62 04/11/23 20:40 97 04/11/23 20:40 65 04/11/23 20:35 96 04/11/23 20:35 67 04/11/23 20:30 97 04/11/23 20:30 67 04/11/23 20:25 98 04/11/23 20:25 73 04/11/23 20:20 97 04/11/23 20:20 63 04/11/23 20:15 97 04/11/23 20:15 72 04/11/23 20:13 63 04/11/23 20:13 101/55 L 04/11/23 19:45 18 04/11/23 19:45 18 04/11/23 20:10 97 04/11/23 20:10 64 04/11/23 20:05 96 04/11/23 20:05 75 04/11/23 19:10 18 04/11/23 19:10 36.5 C 18 04/11/23 20:00 97 04/11/23 20:00 67 04/11/23 19:59 75 04/11/23 19:59 113/55 L 04/11/23 19:55 97 04/11/23 19:55 61 04/11/23 19:50 97 04/11/23 19:50 67 04/11/23 19:45 97 04/11/23 19:45 68 04/11/23 19:42 69 04/11/23 19:42 92/58 L 04/11/23 19:40 98 04/11/23 19:40 68 04/11/23 19:35 98 04/11/23 19:35 70 04/11/23 19:30 97 04/11/23 19:30 73 04/11/23 19:29 92 04/11/23 19:29 65 04/11/23 19:29 103/58 L 04/11/23 19:25 99 04/11/23 19:25 78 04/11/23 19:20 100 04/11/23 19:20 68 04/11/23 19:15 100 04/11/23 19:15 75 04/11/23 19:12 70 04/11/23 19:12 100/58 L 04/11/23 19:10 100 04/11/23 19:10 74 04/11/23 19:05 99 04/11/23 19:05 78 04/11/23 19:00 99 04/11/23 19:00 75 04/11/23 18:59 77 04/11/23 18:59 103/51 L 04/11/23 18:55 93 04/11/23 18:55 72 04/11/23 18:50 100 04/11/23 18:50 86 04/11/23 18:45 100 04/11/23 18:45 79 04/11/23 18:42 83 04/11/23 18:42 95/59 L 04/11/23 18:40 100 04/11/23 18:40 73 04/11/23 18:35 100 04/11/23 18:35 90 04/11/23 18:30 100 04/11/23 18:30 90 04/11/23 18:28 71 04/11/23 18:28 94/54 L 04/11/23 18:25 100 04/11/23 18:25 77 04/11/23 18:20 100 04/11/23 18:20 75 04/11/23 18:16 88 L 04/11/23 18:16 90 04/11/23 18:15 100 04/11/23 18:15 114 H 04/11/23 18:12 90 04/11/23 18:12 92/54 L 04/11/23 18:10 100 04/11/23 18:10 108 H 04/11/23 18:05 100 04/11/23 18:05 72 04/11/23 18:00 100 04/11/23 18:00 101 H 04/11/23 17:57 94 H 04/11/23 17:57 92/55 L 04/11/23 17:55 99 04/11/23 17:55 89 04/11/23 17:54 76 04/11/23 17:54 97/59 L 04/11/23 17:50 100 04/11/23 17:50 92 H 04/11/23 17:47 81 04/11/23 17:47 90/51 L 04/11/23 17:45 91 04/11/23 17:45 99 H 04/11/23 17:43 86 04/11/23 17:43 91/54 L 04/11/23 17:40 100 04/11/23 17:40 88 04/11/23 17:38 96 H 04/11/23 17:38 100/55 L 04/11/23 17:35 91 04/11/23 17:35 97 H 04/11/23 17:35 100 04/11/23 17:35 88 04/11/23 17:32 90 04/11/23 17:32 96/52 L 04/11/23 17:30 100 04/11/23 17:30 88 04/11/23 17:27 89 04/11/23 17:27 97/55 L 04/11/23 17:25 100 04/11/23 17:25 87 04/11/23 17:23 77 04/11/23 17:23 94/52 L 04/11/23 17:20 100 04/11/23 17:20 100 H 04/11/23 17:16 101 H 04/11/23 17:16 99/55 L 04/11/23 17:15 100 04/11/23 17:15 116 H 04/11/23 17:14 100 H 04/11/23 17:14 101/56 L 04/11/23 17:12 105 H 04/11/23 17:12 93/50 L 04/11/23 17:10 18 04/11/23 17:10 36.8 C 18 04/11/23 17:10 99 04/11/23 17:10 117 H 04/11/23 17:10 90/54 L 04/11/23 17:08 106 H 04/11/23 17:08 82/46 L 04/11/23 17:06 103 H 04/11/23 17:06 86/53 L 04/11/23 17:06 91 H 04/11/23 17:06 83/51 L 04/11/23 17:05 100 04/11/23 17:05 91 H 04/11/23 17:05 104/56 L 04/11/23 17:02 76 04/11/23 17:02 104/53 L 04/11/23 17:00 99 04/11/23 17:00 88 04/11/23 17:00 113/56 L 04/11/23 16:58 87 04/11/23 16:58 99/55 L 04/11/23 16:56 87 04/11/23 16:56 111/59 L 04/11/23 16:55 100 04/11/23 16:55 92 H 04/11/23 16:50 100 04/11/23 16:50 91 H 04/11/23 16:45 100 04/11/23 16:45 89 04/11/23 16:44 94 04/11/23 16:44 80 04/11/23 16:40 100 04/11/23 16:40 93 H 04/11/23 16:35 98 04/11/23 16:35 76 04/11/23 16:34 88 L 04/11/23 16:34 86 04/11/23 13:34 19 04/11/23 13:34 36.7 C 19 04/11/23 11:15 69 111/71 Coding Level of Care Code None Diagnoses Patient desires vaginal after section () O34.219
--- NOTE | 2023-04-11 23:57 | Delivery Summary ---
Supervising Physician Co-Signing Physician Notes Patient seen and evaluated with resident and agree with the above findings and plan. Routine care Vaginal Delivery Summary Date of Service April 11, 2023
[2023-04-11] MEDS ORDERED: DIPHTHERIA/TETANUS/PERTUSSIS Vaccine (Tdap, Age 7+yrs) 0.5mL SYR/VL IM ONE (23:58)
[2023-04-11] MEDS ORDERED: BENZOCAINE 20% SPRY 85 APPLN/85 GM CAN EXT PRN (23:58)
[2023-04-11] MEDS ORDERED: HYDROCORTISONE ACETATE 25 MG SUPP PR PRN (23:58)
[2023-04-12] MEDS: ACETAMINOPHEN 325 MG TAB PO PRN ×4 (02:49→22:12)
[2023-04-12] MEDS: IBUPROFEN 600 MG TAB PO PRN ×5 (04:07→20:58)
--- NOTE | 2023-04-12 07:17 | Anesthesia Procedure Note ---
Date of Service April 12, 2023 Anesthesia Post Epidural Note Vital Signs Vital Signs: Temp Pulse Resp BP Pulse Ox O2 Del Method 36.8 C 100 H 18 105/61 100 Room Air 04/12/23 04:01 04/12/23 04:01 04/12/23 04:01 04/12/23 04:01 04/12/23 04:01 04/12/23 04:01 Notes Mental Status: alert / awake / arousable and participated in evaluation Nausea / Vomiting: adequately controlled Pain: adequately controlled Airway Patency, RR, SpO2: stable & adequate BP & HR: stable & adequate Hydration State: stable & adequate Neuraxial Anesthesia: was administered and sensory block is resolving Anesthetic Complications: no major complications apparent Epidural: Removed without complications and With tip intact
--- NOTE | 2023-04-12 07:34 | Obstetrical Progress Note ---
Date of Service <Gayla Farris MD - Last Filed: 04/12/23 08:10> April 12, 2023 Assessment & Plan <Gayla Farris MD - Last Filed: 04/12/23 08:10> (1) Encounter for assessment: Plan Patient with the above mentioned history and findings was evaluated at bedside and found awake, alert, oriented in all spheres, afebrile, and in no acute distress. Vital signs showed no fever and blood pressures remained stable and has remained without symptoms of severity (e.g. vision changes, headaches, oliguria, etc.). Her blood type is O positive and yesterday's hemoglobin was adequate at 10.1 g/dL. Since she is experiencing lightheadedness when standing and ambulating, will order H&H to r/o anemia as a cause. Will also monitor her BPs as some have been slightly on the lower side and so may also be playing a role in the patient's lightheadedness upon standing. Zofran ordered as management of nausea. She is GBS negative and rubella equivocal, for which she is to receive the MMR vaccine pp. Overall, patient is doing well clinically. Will continue care. Should she remain clinically and hemodynamically stable, will consider discharge tomorrow with follow up with her OB in 6 weeks for her pp evaluation. All questions were answered. <Junior Hillman MD - Last Filed: 04/12/23 08:13> (1) Encounter for assessment: Subjective <Gayla Farris MD - Last Filed: 04/12/23 08:10> Domitila is a 27 y/o female who is now PPD # 1 following at 39 40 0/7 weeks. Reports feeling well overall this morning. Refers moderate abdominal cramping & 6/10 pain. She refers she is unsure whether or not her pain is well managed with current analgesics, and will wait until after taking them this morning to see if she needs analgesic adjustment for better control of her pain. Voiding spontaneously without difficulty. She has felt as though she is about to pass flatus but has not actually done so yet. No bowel movements yet. Tolerating meals overnight, but refers some nausea that she associated to her pain/cramps since she has always experienced nausea during her menstrual cycles. Able to ambulate some but has experienced dizziness without syncope or falls when standing.Some persistent lochia with some improvement this morning. only. Constitutional: no fever, no chills or no sweats Denies shortness of breath or difficulty breathing Cardiovascular: no chest pain or no palpitations Breast: no breast pain Genitourinary (female): no dysuria Neurologic: no headache(s) Denies changes in vision Physical Exam <Gayla Farris MD - Last Filed: 04/12/23 08:10> General: Alert. Oriented to person, time, and place. Afebrile. No acute distress . Eyes: pupils equal and reactive to light bilaterally, extraocular movements intact. Cardiac: Regular rate and rhythm, no murmurs/rubs/gallops. Respiratory: Clear to auscultation bilaterally a/p, no wheezes/rales/rhonchi. No increased work of breathing. Symmetrical chest rise. No respiratory distress. Abdomen: Soft, nontender, nondistended. Bowel sounds present. Uterus: Uterine fundus firm, mildly tender, palpable at umbilicus. Lower Extremities: Slight lower extremity swelling without pitting. No deep calf pain. Monet's negative bilaterally. Psych: Euthymic affect. Mood and affect congruence. Regular speech rate and content. Results & Data <Gayla Farris MD - Last Filed: 04/12/23 08:10> Vital Signs (Past 12 Hours) Vital Signs Temp Pulse Pulse Resp BP BP Pulse Ox 04/12/23 03:00 36.8 C 92 H 18 96/58 L 100 04/12/23 04:01 36.8 C 100 H 18 105/61 100 04/12/23 01:55 36.8 C 18 04/12/23 01:25 36.8 C 18 04/12/23 00:55 36.8 C 18 04/12/23 00:40 18 04/12/23 00:25 18 04/12/23 00:10 18 04/12/23 01:55 129 H 109/56 L 04/12/23 01:39 112 H 101/63 04/12/23 01:25 97 H 109/70 04/12/23 01:10 75 97/58 L 04/12/23 00:54 72 97/70 L 04/12/23 00:40 89 101/63 04/12/23 00:31 85 96/54 L 04/12/23 00:00 91 H 99 04/11/23 23:55 99 04/11/23 23:55 87 04/11/23 23:55 82/61 L 04/11/23 23:50 99 04/11/23 23:50 94 H 04/11/23 23:45 99 04/11/23 23:45 84 04/11/23 23:43 81 04/11/23 23:43 96/58 L 04/11/23 23:40 100 04/11/23 23:40 89 04/11/23 23:35 87 L 04/11/23 23:35 75 04/11/23 23:35 100 04/11/23 23:35 75 04/11/23 23:30 94 04/11/23 23:30 98 H 04/11/23 23:29 86 04/11/23 23:29 264/161 H 04/11/23 23:25 100 04/11/23 23:25 85 04/11/23 23:20 100 04/11/23 23:20 98 H 04/11/23 23:00 18 04/11/23 23:00 36.8 C 18 04/11/23 23:15 100 04/11/23 23:15 82 04/11/23 23:10 100 04/11/23 23:10 77 04/11/23 23:05 94 04/11/23 23:05 75 04/11/23 23:00 99 04/11/23 22:59 72 04/11/23 23:00 74 04/11/23 22:59 100/57 L 04/11/23 22:55 100 04/11/23 22:55 87 04/11/23 22:50 100 04/11/23 22:50 81 04/11/23 22:48 94 04/11/23 22:48 83 04/11/23 22:45 98 04/11/23 22:45 78 04/11/23 22:45 146/71 H 04/11/23 22:43 93 04/11/23 22:43 72 04/11/23 22:40 100 04/11/23 22:40 83 04/11/23 22:37 93 04/11/23 22:37 82 04/11/23 22:35 99 04/11/23 22:35 68 04/11/23 22:30 99 04/11/23 22:30 71 04/11/23 22:27 69 04/11/23 22:27 92/57 L 04/11/23 22:25 97 04/11/23 22:25 63 04/11/23 22:20 99 04/11/23 22:20 63 04/11/23 22:15 99 04/11/23 22:15 65 04/11/23 22:14 64 04/11/23 22:14 93/56 L 04/11/23 22:10 97 04/11/23 22:10 72 04/11/23 22:00 18 04/11/23 22:00 18 04/11/23 22:00 18 04/11/23 22:00 18 04/11/23 22:05 98 04/11/23 22:05 61 04/11/23 22:00 97 04/11/23 22:00 74 04/11/23 21:58 61 04/11/23 21:58 94/58 L 04/11/23 21:55 97 04/11/23 21:55 59 L 04/11/23 21:50 98 04/11/23 21:50 62 04/11/23 21:45 98 04/11/23 21:45 61 04/11/23 21:45 89/53 L 04/11/23 21:40 98 04/11/23 21:40 69 04/11/23 21:35 97 04/11/23 21:35 62 04/11/23 21:30 97 04/11/23 21:29 63 04/11/23 21:30 63 04/11/23 21:29 109/53 L 04/11/23 21:25 97 04/11/23 21:25 61 04/11/23 21:00 18 04/11/23 21:00 36.6 C 18 04/11/23 21:20 98 04/11/23 21:20 58 L 04/11/23 21:17 64 04/11/23 21:17 88/57 L 04/11/23 21:15 97 04/11/23 21:15 72 04/11/23 21:10 97 04/11/23 21:10 68 04/11/23 21:05 97 04/11/23 21:05 68 04/11/23 21:00 97 04/11/23 21:00 57 L 04/11/23 20:58 57 L 04/11/23 20:58 89/51 L 04/11/23 20:55 97 04/11/23 20:55 61 04/11/23 20:50 97 04/11/23 20:50 64 04/11/23 20:45 97 04/11/23 20:44 64 04/11/23 20:45 65 04/11/23 20:44 102/62 04/11/23 20:40 97 04/11/23 20:40 65 04/11/23 20:35 96 04/11/23 20:35 67 04/11/23 20:30 97 04/11/23 20:30 67 04/11/23 20:25 98 04/11/23 20:25 73 04/11/23 20:20 97 04/11/23 20:20 63 04/11/23 20:15 97 04/11/23 20:15 72 04/11/23 20:13 63 04/11/23 20:13 101/55 L 04/11/23 19:45 18 04/11/23 19:45 18 04/11/23 20:10 97 04/11/23 20:10 64 04/11/23 20:05 96 04/11/23 20:05 75 04/11/23 20:00 97 04/11/23 20:00 67 04/11/23 19:59 75 04/11/23 19:59 113/55 L 04/11/23 19:55 97 04/11/23 19:55 61 04/11/23 19:50 97 04/11/23 19:50 67 04/11/23 19:45 97 04/11/23 19:45 68 04/11/23 19:42 69 04/11/23 19:42 92/58 L 04/11/23 19:40 98 04/11/23 19:40 68 04/11/23 19:35 98 04/11/23 19:35 70 04/11/23 19:30 97 04/11/23 19:30 73 04/11/23 19:29 92 04/11/23 19:29 65 04/11/23 19:29 103/58 L O2 Del Method 04/12/23 03:00 Room Air 04/12/23 04:01 Room Air 04/12/23 01:55 04/12/23 01:25 04/12/23 00:55 04/12/23 00:40 04/12/23 00:25 04/12/23 00:10 04/12/23 01:55 04/12/23 01:39 04/12/23 01:25 04/12/23 01:10 04/12/23 00:54 04/12/23 00:40 04/12/23 00:31 04/12/23 00:00 04/11/23 23:55 04/11/23 23:55 04/11/23 23:55 04/11/23 23:50 04/11/23 23:50 04/11/23 23:45 04/11/23 23:45 04/11/23 23:43 04/11/23 23:43 04/11/23 23:40 04/11/23 23:40 04/11/23 23:35 04/11/23 23:35 04/11/23 23:35 04/11/23 23:35 04/11/23 23:30 04/11/23 23:30 04/11/23 23:29 04/11/23 23:29 04/11/23 23:25 04/11/23 23:25 04/11/23 23:20 04/11/23 23:20 04/11/23 23:00 04/11/23 23:00 04/11/23 23:15 04/11/23 23:15 04/11/23 23:10 04/11/23 23:10 04/11/23 23:05 04/11/23 23:05 04/11/23 23:00 04/11/23 22:59 04/11/23 23:00 04/11/23 22:59 04/11/23 22:55 04/11/23 22:55 04/11/23 22:50 04/11/23 22:50 04/11/23 22:48 04/11/23 22:48 04/11/23 22:45 04/11/23 22:45 04/11/23 22:45 04/11/23 22:43 04/11/23 22:43 04/11/23 22:40 04/11/23 22:40 04/11/23 22:37 04/11/23 22:37 04/11/23 22:35 04/11/23 22:35 04/11/23 22:30 04/11/23 22:30 04/11/23 22:27 04/11/23 22:27 04/11/23 22:25 04/11/23 22:25 04/11/23 22:20 04/11/23 22:20 04/11/23 22:15 04/11/23 22:15 04/11/23 22:14 04/11/23 22:14 04/11/23 22:10 04/11/23 22:10 04/11/23 22:00 04/11/23 22:00 04/11/23 22:00 04/11/23 22:00 04/11/23 22:05 04/11/23 22:05 04/11/23 22:00 04/11/23 22:00 04/11/23 21:58 04/11/23 21:58 04/11/23 21:55 04/11/23 21:55 04/11/23 21:50 04/11/23 21:50 04/11/23 21:45 04/11/23 21:45 04/11/23 21:45 04/11/23 21:40 04/11/23 21:40 04/11/23 21:35 04/11/23 21:35 04/11/23 21:30 04/11/23 21:29 04/11/23 21:30 04/11/23 21:29 04/11/23 21:25 04/11/23 21:25 04/11/23 21:00 04/11/23 21:00 04/11/23 21:20 04/11/23 21:20 04/11/23 21:17 04/11/23 21:17 04/11/23 21:15 04/11/23 21:15 04/11/23 21:10 04/11/23 21:10 04/11/23 21:05 04/11/23 21:05 04/11/23 21:00 04/11/23 21:00 04/11/23 20:58 04/11/23 20:58 04/11/23 20:55 04/11/23 20:55 04/11/23 20:50 04/11/23 20:50 04/11/23 20:45 04/11/23 20:44 04/11/23 20:45 04/11/23 20:44 04/11/23 20:40 04/11/23 20:40 04/11/23 20:35 04/11/23 20:35 04/11/23 20:30 04/11/23 20:30 04/11/23 20:25 04/11/23 20:25 04/11/23 20:20 04/11/23 20:20 04/11/23 20:15 04/11/23 20:15 04/11/23 20:13 04/11/23 20:13 04/11/23 19:45 04/11/23 19:45 04/11/23 20:10 04/11/23 20:10 04/11/23 20:05 04/11/23 20:05 04/11/23 20:00 04/11/23 20:00 04/11/23 19:59 04/11/23 19:59 04/11/23 19:55 04/11/23 19:55 04/11/23 19:50 04/11/23 19:50 04/11/23 19:45 04/11/23 19:45 04/11/23 19:42 04/11/23 19:42 04/11/23 19:40 04/11/23 19:40 04/11/23 19:35 04/11/23 19:35 04/11/23 19:30 04/11/23 19:30 04/11/23 19:29 04/11/23 19:29 04/11/23 19:29 <Junior Hillman MD - Last Filed: 04/12/23 08:13> Co-Signing Physician Notes Patient seen and evaluated with resident and agree with the above findings and plan. Patient feeling lightheaded and dizzy last night. H&H pending. routine care. Resident Activity Tracking <Gayla Farris MD - Last Filed: 04/12/23 08:10> Resident Involvement: Resident Care Provided Care Provided: OB Delivery
[2023-04-12] MEDS ORDERED: FERROUS SULFATE 325 MG TAB PO SCH (08:00)
[2023-04-12] MEDS ORDERED: PRENATAL VITAMIN 1 TAB PO SCH (08:00)
[2023-04-12] MEDS: DOCUSATE SODIUM 100 MG CAP PO SCH ×2 (08:22→19:30)
[2023-04-12 09:00] LABS: Hematocrit (blood only) 26.8 % (37.0-47.0); Hemoglobin 8.4 g/dl (12.0-16.0)
[2023-04-12] MEDS: ONDANSETRON 4 MG OD TAB PO PRN ×2 (12:59→18:43)
[2023-04-12] MEDS ORDERED: MEASLES, MUMPS & RUBELLA VIRUS VACCINE (MMR) VIAL ONE (13:26)
[2023-04-12] MEDS ORDERED: bisacodyL 5 MG TABEC PO SCH (20:00)
[2023-04-13] MEDS ORDERED: bisacodyL 10 MG SUPP PR PRN
[2023-04-13] MEDS: IBUPROFEN 600 MG TAB PO PRN (00:20)
[2023-04-13] MEDS: ONDANSETRON 4 MG OD TAB PO PRN (00:20)
== END 2023-04-13 00:30 | disposition home or self-care (01) | DRG 807 ==
LOC: 4S1 10:31 → 4E2 04-12 02:29